=== PATIENT | female | born 1960 | race Caucasian/White ===

== ENCOUNTER 2017-05-17 00:59 | Inpatient (IN) | payer OTHER, MEDICARE ==
[~2017-05-17] VITALS: Ht 165.1 cm; Wt 63.2 kg
[2017-05-17] VITALS (12 sets, daily range): BP systolic 106–156; BP diastolic 57–78; PULSE 70–96; RESP 15–18; TEMP 97.3–97.8; O2SAT 94–100
[2017-05-17] MEDS ORDERED: SODIUM CHLOR 0.9% 1000 ML INJ 1,000 ML IV SCH ×2 (01:32→04:15)
--- NOTE | 2017-05-17 01:36 | PD ---
HPI Chief Complaint: Abdominal Pain Time Seen by Provider: 01:32 Travel History International Travel<30 days: No Contact w/Intl Traveler<30days: No Traveled to known affect area: No History of Present Illness HPI 56-year-old female presents to the emergency department by private transportation for evaluation of abdominal pain. Patient states she has localized left lower quadrant abdominal pain associated with history of bowel obstruction secondary to adhesions. Patient has history of inflammatory bowel disease diagnosed with ultrasound colitis and underwent colectomy with revision and J-pouch reconstruction. Patient's last bowel movement was 8 PM. Symptoms began around 9 PM. Symptoms were grossly worsen. Patient's had nausea without vomiting. Patient's had multiple evaluations for small bowel resection. Patient recently moved to the area 3 months ago he does not have a local provider. Patient also has history of hypertension. Patient denies fever or chills. Pain is moderate to severe. PFSH Past Medical History Narrative Medical Hypertension inflammatory bowel disease colectomy ileoanal anastomosis hysterectomy alcohol use nursing notes reviewed Diminished Hearing: No Gastrointestinal Disorders: Yes (abdominal adhesions and blockages, ulcerative colitis, crohn's ) Hypertension: Yes Tetanus Vaccination: < 5 Years Influenza Vaccination: Yes ?: Not Past Surgical History Abdominal Surgery: Yes (Total colectomy with ileoanal anastomosis ) Hysterectomy: Yes Social History Alcohol Use: Yes (2x weekly) Tobacco Use: No Substance Use: No Allergies-Medications (Allergen,Severity, Reaction): Coded Allergies: No Known Allergies (Unverified , 05/17/17) Reported Meds & Prescriptions Reported Meds & Active Scripts Active Reported Premarin (Estrogens Conjugated) 0.625 Mg Tab 0.625 Mg PO DAILY Lisinopril 5 Mg Tab 5 Mg PO DAILY Humira 2-Pack Inj (Adalimumab 2-Pack Inj) 40 Mg/0.8 Ml Syr 40 Mg SQ Q7D Narrative Medication Humerus lisinopril Review of Systems Except as stated in HPI: all other systems reviewed are Neg General / Constitutional: No: Fever, Chills HENT: No: Congestion Cardiovascular: No: Chest Pain or Discomfort Respiratory: No: Shortness of Breath Gastrointestinal: Positive: Nausea, Abdominal Pain, No: Vomiting, Diarrhea Genitourinary: No: Dysuria, Flank Pain Musculoskeletal: No: Myalgias, Arthralgias Skin: No Rash Neurologic: No: Weakness Psychiatric: No: Anxiety Endocrine: No: Heat Intolerance Hematologic/Lymphatic: No: Easy Bruising Physical Exam Narrative GENERAL: Well-developed well-nourished female in no acute distress no respiratory distress SKIN: Warm and dry. HEAD: Normocephalic. EYES: No scleral icterus. No injection or drainage. NECK: Supple, trachea midline. No JVD or lymphadenopathy. CARDIOVASCULAR: Regular rate and rhythm without murmurs, gallops, or rubs. RESPIRATORY: Breath sounds equal bilaterally. No accessory muscle use. GASTROINTESTINAL: Abdomen soft, tender left lower quadrant to palpation without guarding or rebound, nondistended. Healed abdominal wall scars. MUSCULOSKELETAL: No cyanosis, or edema. BACK: Nontender without obvious deformity. No CVA tenderness. Data Data Last Documented VS Vital Signs Date Time Temp Pulse Resp B/P Pulse Ox O2 Delivery O2 Flow Rate FiO2 05/17/17 03:50 82 18 106/57 97 Room Air 05/17/17 01:02 97.3 Orders Complete Blood Count With Diff (05/17/17 01:32) Comprehensive Metabolic Panel (05/17/17 01:32) Lipase (05/17/17 01:32) Lactic Acid (05/17/17 01:32) Urinalysis - C+S If Indicated (05/17/17 01:32) Iv Access Insert/Monitor (05/17/17 01:32) Ecg Monitoring (05/17/17 01:32) Oximetry (05/17/17 01:32) Ondansetron Inj (Zofran Inj) (05/17/17 01:45) Sodium Chlor 0.9% 1000 Ml Inj (Ns 1000 M (05/17/17 01:32) Sodium Chloride 0.9% Flush (Ns Flush) (05/17/17 01:45) Chest, Single Ap (05/17/17 01:32) Hydromorphone Pf Inj (Dilaudid Pf Inj) (05/17/17 01:45) Alcohol (Ethanol) (05/17/17 01:32) Ct Abd/Pel W Iv Contrast(Rout) (05/17/17 ) Iohexol 350 Inj (Omnipaque 350 Inj) (05/17/17 03:21) Sodium Chlor 0.9% 1000 Ml Inj (Ns 1000 M (05/17/17 04:15) Hydromorphone Pf Inj (Dilaudid Pf Inj) (05/17/17 04:15) Admit Order (Ed Use Only) (05/17/17 ) ^ Saline Lock (05/17/17 04:16) Resp Oxygen Rogers C Titrat 1-4 L (05/17/17 ) Notify Dr: Other (05/17/17 04:16) Sodium Chloride 0.9% Flush (Ns Flush) (05/17/17 09:00) Sodium Chloride 0.9% Flush (Ns Flush) (05/17/17 04:30) Labs Laboratory Tests Test 05/17/17 05/17/17 02:01 03:43 White Blood Count 10.3 TH/MM3 Red Blood Count 4.46 MIL/MM3 Hemoglobin 13.8 GM/DL Hematocrit 40.7 % Mean Corpuscular Volume 91.3 FL Mean Corpuscular Hemoglobin 30.9 PG Mean Corpuscular Hemoglobin 33.8 % Concent Red Cell Distribution Width 11.5 % Platelet Count 292 TH/MM3 Mean Platelet Volume 7.3 FL Neutrophils (%) (Auto) 73.8 % Lymphocytes (%) (Auto) 17.7 % Monocytes (%) (Auto) 5.1 % Eosinophils (%) (Auto) 0.9 % Basophils (%) (Auto) 2.5 % Neutrophils # (Auto) 7.6 TH/MM3 Lymphocytes # (Auto) 1.8 TH/MM3 Monocytes # (Auto) 0.5 TH/MM3 Eosinophils # (Auto) 0.1 TH/MM3 Basophils # (Auto) 0.3 TH/MM3 CBC Comment DIFF FINAL Differential Comment Sodium Level 138 MEQ/L Potassium Level 3.5 MEQ/L Chloride Level 104 MEQ/L Carbon Dioxide Level 24.4 MEQ/L Anion Gap 10 MEQ/L Blood Urea Nitrogen 15 MG/DL Creatinine 0.76 MG/DL Estimat Glomerular Filtration 78 ML/MIN Rate Random Glucose 97 MG/DL Lactic Acid Level 2.0 mmol/L Calcium Level 9.0 MG/DL Total Bilirubin 0.4 MG/DL Aspartate Amino Transf 13 U/L (AST/SGOT) Alanine Aminotransferase 17 U/L (ALT/SGPT) Alkaline Phosphatase 54 U/L Total Protein 7.2 GM/DL Albumin 3.6 GM/DL Lipase 181 U/L Ethyl Alcohol Level 49 MG/DL Urine Color JEANETTE Urine Turbidity CLEAR Urine pH 5.0 Urine Specific [place] 1.030 Urine Protein NEG mg/dL Urine Glucose (UA) NEG mg/dL Urine Ketones NEG mg/dL Urine Occult Blood TRACE Urine Nitrite NEG Urine Bilirubin NEG Urine Leukocyte Esterase TRACE Urine RBC 0-3 /hpf Urine WBC 6-8 /hpf Urine Squamous Epithelial > 8 /hpf Cells Urine Bacteria NONE /hpf Microscopic Urinalysis Comment CULT NOT INDICATED MDM Medical Decision Making Medical Screen Exam Complete: Yes Emergency Medical Condition: Yes Medical Record Reviewed: Yes Interpretation(s) cxr: No subdiaphragmatic free air ct abd/pel: CONCLUSION: 1. Findings characteristic of distal small bowel obstruction. Followup examination is recommended if clinically indicated. 2. Total colectomy. Adi Ozuna MD on May 17, 2017 at 3:52 Board Certified Radiologist. This report was verified electronically. CBC & BMP Diagram 05/17/17 02:01 Vital Signs Date Time Temp Pulse Resp B/P Pulse Ox O2 Delivery O2 Flow Rate FiO2 05/17/17 03:50 82 18 106/57 97 Room Air 05/17/17 02:30 14 05/17/17 02:14 100 Room Air 05/17/17 02:14 72 16 116/72 100 Room Air 05/17/17 01:02 97.3 96 16 139/73 97 Differential Diagnosis Abdominal pain, partial small bowel obstruction, colitis, diverticulitis, UTI Narrative Course IV access obtained specimens collected and sent for resulting patient administered normal saline, Zofran 4 mg IV, Dilaudid 0.5 mg IV resting in no distress; CT pendnig CT resulted c/w sbo patient administered additional pain medication patient discussed with podiatric surgeon medicine for admission Physician Communication Physician Communication call placed to [facility] service Diagnosis Primary Impression: SBO (small bowel obstruction) Admitting Information Admitting Physician Requests: Admit Tena Johnson MD May 17, 2017 01:36
[2017-05-17] MEDS ORDERED: HYDROmorphone HCL PF 1 MG/ML VIAL IV PUSH ONE ×2 (01:45→04:15)
[2017-05-17] MEDS ORDERED: ONDANSETRON HCL 4 MG/2 ML VIAL IVP ONE (01:45)
[2017-05-17] MEDS ORDERED: SODIUM CHLORIDE 0.9% FLUSH 10 ML FLUSH IV FLUSH PRN ×2 (01:45→04:45)
[2017-05-17] MEDS ORDERED: HUMI40KI SQ (01:52)
[2017-05-17] MEDS ORDERED: LISI-519 PO (01:52)
[2017-05-17] MEDS ORDERED: ESTR.625 PO (01:52)
[2017-05-17 02:09] LABS: AUTOMATED NEUTROPHIL # 7.6 TH/MM3 (1.8-7.7); BASOPHIL # 0.3 TH/MM3 (0-0.2); BASOPHIL % 2.5 % (0.0-2.0); EOSINOPHIL # 0.1 TH/MM3 (0-0.4); EOSINOPHIL % 0.9 % (0.0-4.0); HEMATOCRIT 40.7 % (35.0-46.0); HEMO FLAGS DIFF FINAL; LYMPH % 17.7 % (9.0-44.0); LYMPHOCYTE # 1.8 TH/MM3 (1.0-4.8); MEAN CELL VOLUME 91.3 FL (80.0-100.0); MEAN CORPUSCULAR HEMOGLOBIN 30.9 PG (27.0-34.0); MEAN CORPUSCULAR HGB CONC 33.8 % (32.0-36.0); MONO % 5.1 % (0.0-8.0); NEUT % 73.8 % (16.0-70.0); PLATELET COUNT 292 TH/MM3 (150-450); RED BLOOD COUNT 4.46 MIL/MM3 (4.00-5.30); RED CELL DISTRIBUTION WIDTH 11.5 % (11.6-17.2); WHITE BLOOD COUNT 10.3 TH/MM3 (4.0-11.0)
[2017-05-17 02:26] LABS: CHLORIDE 104 MEQ/L (98-107); POTASSIUM 3.5 MEQ/L (3.5-5.1); SODIUM (NA) 138 MEQ/L (136-145)
[2017-05-17 02:30] LABS: ANION GAP 10 MEQ/L (5-15); BICARBONATE 24.4 MEQ/L (21.0-32.0); BLOOD UREA NITROGEN 15 MG/DL (7-18)
[2017-05-17 02:32] LABS: ALT (GPT) 17 U/L (10-53); AST (GOT) 13 U/L (15-37)
[2017-05-17 02:33] LABS: GLOMERULAR FILTRATION RATE 78 ML/MIN (>89)
[2017-05-17 02:34] LABS: TOTAL BILIRUBIN ADULT 0.4 MG/DL (0.2-1.0)
[2017-05-17 02:35] LABS: ALKALINE PHOSPHATASE 54 U/L (45-117)
--- NOTE | 2017-05-17 02:59 | RADRPT ---
EXAM DATE/TIME: 05/17/2017 01:37 [facility] COMPARISON: No previous studies available for comparison. INDICATIONS : Free air. MEDICAL HISTORY : Crohn's disease. SURGICAL HISTORY : Appendectomy. Hysterectomy. ENCOUNTER: Initial ACUITY: 1 day PAIN SCORE: 10/10 LOCATION: Left lower quadrant abdomen FINDINGS: A single view of the chest demonstrates the lungs to be symmetrically aerated without evidence of mas s, infiltrate or effusion. The cardiomediastinal contours are unremarkable. Osseous structures are intact. CONCLUSION: 1. No acute cardiopulmonary disease. Adi Ozuna MD on May 17, 2017 at 2:57 Board Certified Radiologist. This report was verified electronically.
[2017-05-17] MEDS ORDERED: IOHEXOL 350 MG/ML 10 ML VIAL (for RAD DIAG) IV ONE (03:21)
[2017-05-17 03:51] LABS: BLOOD, URINE TRACE (NEG); GLUCOSE,URINE NEG (NEG); KETONE, URINE NEG (NEG); NITRITE,URINE NEG (NEG)
--- NOTE | 2017-05-17 03:57 | RADRPT ---
EXAM DATE/TIME: 05/17/2017 03:21 [facility] COMPARISON: No previous studies available for comparison. INDICATIONS : History of Crohn's disease and ulcerative colitis. abdominal pain for 1 day. rule out obstruction. IV CONTRAST: 95 cc Omnipaque 350 (iohexol) IV ORAL CONTRAST: No oral contrast ingested. RADIATION DOSE: 5.08 CTDIvol (mGy) MEDICAL HISTORY : Ulcerative colitis. Crohns disease. SURGICAL HISTORY : Hysterectomy. Total colectomy with ileoanal anastomosis ENCOUNTER: Initial ACUITY: 1 day PAIN SCALE: 9/10 LOCATION: abdomen TECHNIQUE: Volumetric scanning of the abdomen and pelvis was performed. Using automated exposure control and ad justment of the mA and/or kV according to patient size, radiation dose was kept as low as reasonably achievable to obtain optimal diagnostic quality images. DICOM format image data is available electro nically for review and comparison. FINDINGS: There are multiple hypodensities within the liver compatible with hepatic cysts the largest measuring 4 cm in segment 7. The spleen is normal in size and free of focal defects. The gallbladder and pancr eas are unremarkable. No intrahepatic or extrahepatic ductal dilatation is seen. The adrenal glands a re unremarkable. The left kidney is unremarkable. There is right hydronephrosis and hydroureter to th e level of the pelvic brim which appears secondary to a distended loop of small bowel. Within the pelvis there are multiple dilated loops of small bowel this patient with previous surgery and staple line in the rectum and sigmoid colon. There is total colectomy. Free fluid is present in t he abdomen. CONCLUSION: 1. Findings characteristic of distal small bowel obstruction. Followup examination is recommended if clinically indicated. 2. Total colectomy. Adi Ozuna MD on May 17, 2017 at 3:52 Board Certified Radiologist. This report was verified electronically.
[2017-05-17 04:08] LABS: COMMENT (UR) CULT NOT INDICATED; CULTURE IF INDICATED CULT NOT INDICATED; RBC, URINE 0-3 /hpf (0-3); SQUAMOUS EPITHELIAL CELL URINE > 8 /hpf (0-5); URINE COLOR AMBER (YELLW/STRAW)
[2017-05-17] MEDS ORDERED: SODIUM CHLORIDE 0.9% FLUSH 10 ML FLUSH IVF PRN (04:30)
[2017-05-17] MEDS: SODIUM CHLOR 0.9% 1000 ML INJ 1,000 ML IV SCH ×2 (04:32→14:32)
[2017-05-17] MEDS ORDERED: MORPHINE SULFATE 4 MG/ML INJ IV PRN (04:45)
[2017-05-17] MEDS ORDERED: LACTULOSE SYRUP 20 GM/30 ML CUP PO PRN (04:45)
[2017-05-17] MEDS ORDERED: ONDANSETRON HCL 4 MG/2 ML VIAL IVP PRN (04:45)
[2017-05-17] MEDS ORDERED: BISACODYL 10 MG SUPP RECTAL PRN (04:45)
[2017-05-17] MEDS ORDERED: ACETAMINOPHEN 1000 MG/100 ML VIAL IV PRN (04:45)
[2017-05-17] MEDS ORDERED: MAGNESIUM HYDROXIDE SUSP 30 ML CUP PO PRN (04:45)
[2017-05-17] MEDS ORDERED: SENNOSIDES 8.6 MG TAB PO PRN (04:45)
[2017-05-17] MEDS: MORPHINE SULFATE 4 MG/ML INJ IV PRN ×3 (06:47→20:03)
[2017-05-17] MEDS: SODIUM CHLORIDE 0.9% FLUSH 10 ML FLUSH IV FLUSH SCH ×2 (09:00→20:02)
[2017-05-17] MEDS ORDERED: SODIUM CHLORIDE 0.9% FLUSH 10 ML FLUSH IV FLUSH SCH (09:00)
[2017-05-17] MEDS: DOCUSATE SODIUM 50 MG/SENNA 8.6 MG TAB PO SCH ×3 (09:00→20:04)
--- NOTE | 2017-05-17 09:10 | HHI.HP ---
[facility] Deion Joyce MD Admission Diagnosis sbo Diagnoses: (1) SBO (small bowel obstruction) Diagnosis: Principal Chief Complaint: Abdominal pain Travel History International Travel<30 Days: No Contact w/Intl Traveler <30 Da: No Traveled to Known Affected Are: No History of Present Illness Written by Jacob Tyler, acting as scribe for Dr. Griffiths on 05/17/17 at 09: 00. 56-year-old female with known history of hypertension, ulcerative colitis status post total colectomy with J-pouch, recurrent bowel obstructions who presented to hospital because acute onset of abdominal pain. Patient states the pain is located in the left lower quadrant and she describes it as a contraction type pain that at its peak is 10/10 on a pain scale. Patient states that that pain has significantly improved and only at 2/10 on a pain scale. The contraction pain was resolved. She has some minimal nausea, denies any vomiting. Her last bowel movement was last night at approximately 67 PM. She is passing some gas this morning. She indicates that her surgeons in [place] notified her that she should not undergo any surgical intervention without contacting them first. Patient does not have a primary medical doctor or surgeon in the area. Patient had workup done emergency department with CT scan indicating small bowel obstruction with free fluid in the abdomen. Patient was admitted for further evaluation management. Review of Systems Gastrointestinal: COMPLAINS OF: Abdominal pain Except as stated in HPI: all other systems reviewed are Neg Past Family Social History Past Medical History Hypertension Ulcer colitis Past Surgical History Total colectomy with ileoanal anastomosis Hysterectomy Reported Medications Reported Meds & Active Scripts Active Reported Premarin (Estrogens Conjugated) 0.625 Mg Tab 0.625 Mg PO DAILY Lisinopril 5 Mg Tab 5 Mg PO DAILY Humira 2-Pack Inj (Adalimumab 2-Pack Inj) 40 Mg/0.8 Ml Syr 40 Mg SQ Q7D Allergies: Coded Allergies: No Known Allergies (Unverified , 05/17/17) Family History Reviewed is significant for mother from lung cancer in father from lymphoma. Social History Patient is drink alcohol occasionally. Denies any tobacco or illicit drugs Physical Exam Vital Signs Vital Signs Date Time Temp Pulse Resp B/P Pulse Ox O2 Delivery O2 Flow Rate FiO2 05/17/17 08:00 97.6 74 16 125/78 98 05/17/17 06:50 75 15 118/74 99 Room Air 05/17/17 05:37 80 15 113/73 98 Room Air 05/17/17 05:20 97 21 05/17/17 04:33 15 05/17/17 03:50 82 18 106/57 97 Room Air 05/17/17 02:30 14 05/17/17 02:14 100 Room Air 05/17/17 02:14 72 16 116/72 100 Room Air 05/17/17 01:02 97.3 96 16 139/73 97 Physical Exam GENERAL: Well-developed, well-nourished. alert and orientated HEENT: Head is normocephalic .Facial features are symmetric. Eyes: Pupils equal round reactive to light. Extraocular muscles are intact. Conjunctivae were clear. Oropharyngeal: Pharynx without any erythema edema. Tongue is midline without deviation. Buccal mucosa is moist without any masses or lesions NECK: Supple without any masses. Trachea midline no deviation. CARDIAC: Regular rhythm, regular rate.No murmurs LUNGS: Clear to auscultation bilaterally. No wheeze. No use of accessory muscles on inspiration or expiration. ABDOMEN: Soft, tenderness noted left lower quadrant. When palpating right lower quadrant she does express pain in the left lower quadrant. Nondistended. Bowel sounds heard in all 4 quadrants but are hypoactive. Negative rebound, negative guarding. Scars noted left lower quadrant and mid umbilical area, well healed, no signs of infection EXTREMITIES: No edema, pulses are equal bilaterally. NEUROLOGY: Mood and affect appear appropriate. Cranial nerves II through XII grossly intact. Muscle strength 5/5 in upper and lower extremities bilaterally. Laboratory Laboratory Tests Test 05/17/17 05/17/17 02:01 03:43 White Blood Count 10.3 Red Blood Count 4.46 Hemoglobin 13.8 Hematocrit 40.7 Mean Corpuscular Volume 91.3 Mean Corpuscular Hemoglobin 30.9 Mean Corpuscular Hemoglobin 33.8 Concent Red Cell Distribution Width 11.5 Platelet Count 292 Mean Platelet Volume 7.3 Neutrophils (%) (Auto) 73.8 Lymphocytes (%) (Auto) 17.7 Monocytes (%) (Auto) 5.1 Eosinophils (%) (Auto) 0.9 Basophils (%) (Auto) 2.5 Neutrophils # (Auto) 7.6 Lymphocytes # (Auto) 1.8 Monocytes # (Auto) 0.5 Eosinophils # (Auto) 0.1 Basophils # (Auto) 0.3 CBC Comment DIFF FINAL Differential Comment Sodium Level 138 Potassium Level 3.5 Chloride Level 104 Carbon Dioxide Level 24.4 Anion Gap 10 Blood Urea Nitrogen 15 Creatinine 0.76 Estimat Glomerular Filtration 78 Rate Random Glucose 97 Lactic Acid Level 2.0 Calcium Level 9.0 Total Bilirubin 0.4 Aspartate Amino Transf 13 (AST/SGOT) Alanine Aminotransferase 17 (ALT/SGPT) Alkaline Phosphatase 54 Total Protein 7.2 Albumin 3.6 Lipase 181 Ethyl Alcohol Level 49 Urine Color JEANETTE Urine Turbidity CLEAR Urine pH 5.0 Urine Specific [place] 1.030 Urine Protein NEG Urine Glucose (UA) NEG Urine Ketones NEG Urine Occult Blood TRACE Urine Nitrite NEG Urine Bilirubin NEG Urine Leukocyte Esterase TRACE Urine RBC 0-3 Urine WBC 6-8 Urine Squamous Epithelial > 8 Cells Urine Bacteria NONE Microscopic Urinalysis Comment CULT NOT INDICATED Result Diagram: 05/17/17 0201 05/17/17 0201 Imaging Last Impressions Chest X-Ray 05/17/17 0132 Signed Impressions: Service Date/Time: Wednesday, May 17, 2017 01:37 - CONCLUSION: 1. No acute cardiopulmonary disease. Adi Ozuna MD Abdomen/Pelvis CT 05/17/17 0000 Signed Impressions: Service Date/Time: Wednesday, May 17, 2017 03:21 - CONCLUSION: 1. Findings characteristic of distal small bowel obstruction. Followup examination is recommended if clinically indicated. 2. Total colectomy. Adi Ozuna MD Assessment and Plan Assessment and Plan 56-year-old female who presented to hospital because of left lower quadrant abdominal pain Small bowel obstruction, recurrent CT scan does indicate distal small bowel obstruction with free fluid noted in the abdomen Continue IV fluids Continue pain control Nothing by mouth with Bowel rest Consult surgery for recommendations Hypertension, blood pressure stable Resume medication when patient is able to tolerate by mouth DVT prevention Sequential compression devices This note was transcribed by ady Tyler. I, Dr. Coty Griffiths personally performed the history, physical exam, and medical decision making; and confirmed the accuracy of the information in the transcribed note. Authenticated by Dr. Coty Griffiths on 05/17/17 at 09:00. Code Status Full code Discussed Condition With Patient Physician Certification 2 Midnight Certification Type: Admission for Inpatient Services Order for Inpatient Services The services are ordered in accordance with Medicare regulations or non- Medicare payer requirements, as applicable. In the case of services not specified as inpatient-only, they are appropriately provided as inpatient services in accordance with the 2-midnight benchmark. Estimated LOS (days): 2 days is the estimated time the patient will need to remain in the hospital, assuming treatment plan goals are met and no additional complications. Post-Hospital Plan: Not yet determined Jacob Tyler May 17, 2017 09:10 Coty Griffiths MD May 17, 2017 11:30
[2017-05-17] MEDS ORDERED: ENALAPRILAT 1.25 MG/ML VIAL IV PUSH PRN (11:30)
--- NOTE | 2017-05-17 19:25 | MB ---
cc: SUNIL BAILEY JON C. M.D. BIANCHI, JOSEPH D. M.D. DATE OF CONSULTATION: 05/17/2013. REASON FOR CONSULTATION: Questionable small bowel obstruction. HISTORY OF PRESENT ILLNESS: This is a pleasant 56-year-old female who had a total colectomy for a mixture of ulcerative colitis and in addition she apparently has Crohn's disease, this was done in 2000. She intermittently has some crampy abdominal pain with signs of obstruction but this resolves over time after being in the hospital. [place] has followed her for many years and said, "Don't let anybody operate on you, this should get better". She is set up for an endoscopy evaluation by Dr. Bailey a couple weeks from now. I was consulted after the CT scan was read as possible small bowel obstruction. The patient says that since being in the hospital, she has passed a fair amount of gas but no bowel movement. No nausea or vomiting. Her abdominal discomfort is improved. PAST MEDICAL HISTORY: 1. As above with this ulcerative colitis / Crohn's disease with a total colectomy and ileoanal anastomosis. 2. She has had a hysterectomy in the past. 3. No cardiac problems except for hypertension and pulmonary issues. 4. No neurologic events. MEDICATIONS: Her medications include: 1. Humira. 2. Premarin. 3. Lisinopril. ALLERGIES: SHE IS NOT ALLERGIC TO ANYTHING. PHYSICAL EXAMINATION: GENERAL: On physical exam, she is a pleasant lady cooperative alert and oriented with minimal discomfort. NECK: The neck is supple. CHEST: Clear. HEART: Regular rate. ABDOMEN: Surgical scars in the midline. It looks like she had an ileostomy on the right side that has healed. She is mildly sore in the left lower quadrant. No rebound or guarding. EXTREMITIES: She moves all extremities well. No cyanosis, clubbing or edema. NEUROLOGIC: She is alert and oriented. LABORATORY DATA: White count of 10, hemoglobin of 13 and hematocrit of 40. Chemistry essentially normal. Liver function tests all normal. Urinalysis negative. IMAGING STUDIES: CT scan was done and showed status post colectomy with some slightly dilated small bowel hepatic cysts. ASSESSMENT: This is a 56-year-old female status post total colectomy years ago with history of intermittent small-bowel obstruction that resolved with conservative management. PLAN: At this time, she would like a cup of coffee as she is passing a fair amount of flatus. I would slowly advance her diet. I suspect this will resolve. I will get a KUB in the morning. She knows to see Dr. Bailey in a couple of weeks for the planned endoscopy and to evaluate her ileoanal anastomosis. MD DARBY Ramos/CHEIKH /6:46 PM /7:14 PM
[2017-05-18] VITALS: BP 131/90; PULSE 86; RESP 18; TEMP 97.1
[2017-05-18] MEDS: SODIUM CHLOR 0.9% 1000 ML INJ 1,000 ML IV SCH (04:53)
--- NOTE | 2017-05-18 06:46 | RADRPT ---
EXAM DATE/TIME: 05/18/2017 06:23 [facility] COMPARISON: No previous studies available for comparison. INDICATIONS : Distention. MEDICAL HISTORY : Ulcerative colitis. Crohn's disease. SURGICAL HISTORY : Hysterectomy. Total colectomy with ileoanal anastamosis. ENCOUNTER: Subsequent ACUITY: 2 days PAIN SCORE: Non-responsive. LOCATION: abdomen, all quadrants. FINDINGS: Supine view of the abdomen was performed. The abdominal bowel gas pattern is normal. No abnormal ma sses, calcifications, or organomegaly is seen. The osseous structures are unremarkable. CONCLUSION: No acute disease. Robin Beach MD on May 18, 2017 at 6:45 Board Certified Radiologist. This report was verified electronically.
[2017-05-18 06:55] LABS: CHLORIDE 110 MEQ/L (98-107); POTASSIUM 3.1 MEQ/L (3.5-5.1); SODIUM (NA) 141 MEQ/L (136-145)
[2017-05-18 07:04] LABS: AUTOMATED NEUTROPHIL # 4.2 TH/MM3 (1.8-7.7); BASOPHIL # 0.1 TH/MM3 (0-0.2); BASOPHIL % 0.9 % (0.0-2.0); EOSINOPHIL # 0.1 TH/MM3 (0-0.4); EOSINOPHIL % 1.1 % (0.0-4.0); HEMATOCRIT 34.6 % (35.0-46.0); HEMO FLAGS DIFF FINAL; LYMPH % 17.8 % (9.0-44.0); LYMPHOCYTE # 1.1 TH/MM3 (1.0-4.8); MEAN CORPUSCULAR HEMOGLOBIN 30.8 PG (27.0-34.0); MEAN CORPUSCULAR HGB CONC 33.5 % (32.0-36.0); MONO % 8.4 % (0.0-8.0); NEUT % 71.8 % (16.0-70.0); PLATELET COUNT 224 TH/MM3 (150-450); RED BLOOD COUNT 3.76 MIL/MM3 (4.00-5.30); RED CELL DISTRIBUTION WIDTH 11.8 % (11.6-17.2)
[2017-05-18 07:26] LABS: ALKALINE PHOSPHATASE 46 U/L (45-117); ALT (GPT) 13 U/L (10-53); ANION GAP 8 MEQ/L (5-15); AST (GOT) 13 U/L (15-37); BICARBONATE 23.5 MEQ/L (21.0-32.0); BLOOD UREA NITROGEN 9 MG/DL (7-18); GLOMERULAR FILTRATION RATE 114 ML/MIN (>89); TOTAL BILIRUBIN ADULT 0.8 MG/DL (0.2-1.0)
[2017-05-18 08:00] VITALS: BP 114/67; PULSE 72; RESP 20; TEMP 96.6; O2SAT 100
--- NOTE | 2017-05-18 08:12 | HHI.PR ---
Subjective Subjective Notes DAILY PROGRESS NOTE FOR SURGICAL ATTENDING, DR. ATUL DING Sitting on the side of the bed Had BM this morning No issues Feeling better Objective Vitals/I&O Vital Signs Date Time Temp Pulse Resp B/P Pulse Ox O2 Delivery O2 Flow Rate FiO2 05/18/17 00:00 97.1 86 18 131/90 05/17/17 20:00 98 05/17/17 19:38 21 05/17/17 06:50 Room Air Labs Laboratory Tests Test 05/18/17 05:25 White Blood Count 6.0 Red Blood Count 3.76 Hemoglobin 11.6 Hematocrit 34.6 Mean Corpuscular Volume 92.0 Mean Corpuscular Hemoglobin 30.8 Mean Corpuscular Hemoglobin 33.5 Concent Red Cell Distribution Width 11.8 Platelet Count 224 Mean Platelet Volume 8.3 Neutrophils (%) (Auto) 71.8 Lymphocytes (%) (Auto) 17.8 Monocytes (%) (Auto) 8.4 Eosinophils (%) (Auto) 1.1 Basophils (%) (Auto) 0.9 Neutrophils # (Auto) 4.2 Lymphocytes # (Auto) 1.1 Monocytes # (Auto) 0.5 Eosinophils # (Auto) 0.1 Basophils # (Auto) 0.1 CBC Comment DIFF FINAL Differential Comment Sodium Level 141 Potassium Level 3.1 Chloride Level 110 Carbon Dioxide Level 23.5 Anion Gap 8 Blood Urea Nitrogen 9 Creatinine 0.55 Estimat Glomerular Filtration 114 Rate Random Glucose 90 Calcium Level 7.5 Total Bilirubin 0.8 Aspartate Amino Transf 13 (AST/SGOT) Alanine Aminotransferase 13 (ALT/SGPT) Alkaline Phosphatase 46 Total Protein 5.8 Albumin 2.8 Radiology Last Impressions Abdomen X-Ray 05/18/17 0600 Signed Impressions: Service Date/Time: Thursday, May 18, 2017 06:23 - CONCLUSION: No acute disease. Robin Beach MD Chest X-Ray 05/17/17 0132 Signed Impressions: Service Date/Time: Wednesday, May 17, 2017 01:37 - CONCLUSION: 1. No acute cardiopulmonary disease. Adi Ozuna MD Abdomen/Pelvis CT 05/17/17 0000 Signed Impressions: Service Date/Time: Wednesday, May 17, 2017 03:21 - CONCLUSION: 1. Findings characteristic of distal small bowel obstruction. Followup examination is recommended if clinically indicated. 2. Total colectomy. Adi Ozuna MD Cardiovascular: Regular Lungs: Clear Abdomen: Non-distended, Non-tender, Other (well healed midline incision ) Extremities: No edema A/P Assessment and Plan 56 year old female s/p total colectomy for Crohn's disease with SBO -+BM -Advance to soft diet today -If tolerates will plan to DC today -Follow up with Dr. Bailey later this month -Continue non op treatment Attending Statement NOTE FOR SURGICAL ATTENDING, DR. ATUL DING I agree with above assessment and plan. The exam, history, and the medical decision-making described in the above note were completed with the assistance of the mid-level provider. I reviewed and agree with the findings presented. The following services were provided during this hospital visit: Chart data review, vital sign assessments/reviewing monitor data Review of consultations notes if present. Medication orders/review and/or management Ordering and/or reviewing lab tests Ordering and/or interpreting/reviewing x-rays and/or diagnostic studies Care of the patient and discussion of the patient with the care team Documentation time To help prompt me to consider important information that might be impacting today's encounter and assessment, information from prior notes written by myself or my colleagues may have been "brought forward/copy and pasted" into today's note. Moni Ventura May 18, 2017 08:12 Atul Ding MD May 18, 2017 17:21
[2017-05-18] MEDS ORDERED: POTASSIUM CHLORIDE 10 MEQ CONTROLLED RELEASE TAB PO ONE (08:30)
[2017-05-18] MEDS ORDERED: LISINOPRIL 5 MG TAB PO SCH (09:00)
[2017-05-18] MEDS: DOCUSATE SODIUM 50 MG/SENNA 8.6 MG TAB PO SCH (09:00)
[2017-05-18] MEDS: SODIUM CHLORIDE 0.9% FLUSH 10 ML FLUSH IV FLUSH SCH (09:00)
--- NOTE | 2017-05-18 10:06 | HHI.PR ---
Subjective Remarks Patient had a bowel movement last night. Tolerating regular diet and have breakfast this morning. Having some loose stools which she states is typical for her. Having some mild left lower quadrant abdominal pain which is cramping in nature. Patient would like to go home today. Objective Vitals Vital Signs Date Time Temp Pulse Resp B/P Pulse Ox O2 Delivery O2 Flow Rate FiO2 05/18/17 00:00 97.1 86 18 131/90 05/17/17 20:00 97.6 75 18 142/77 98 05/17/17 19:38 94 21 05/17/17 16:00 97.8 84 18 156/76 100 05/17/17 15:14 100 21 05/17/17 12:00 97.7 70 16 116/77 98 I/O 05/17/17 05/17/17 05/17/17 05/18/17 05/18/17 05/18/17 06:59 14:59 22:59 06:59 14:59 22:59 Intake Total 1000 ml 905 ml 1252 ml Balance 1000 ml 905 ml 1252 ml Intake Oral 550 ml 350 ml IV Total 1000 ml 355 ml 902 ml # Voids 1 8 3 # Bowel Movements 0 1 Result Diagram: 05/18/17 0525 05/18/17 0525 Objective Remarks GENERAL: Well-nourished, well-developed very pleasant lean female patient. SKIN: Warm and dry. HEAD: Normocephalic. EYES: No scleral icterus. No injection or drainage. NECK: Supple, trachea midline. No JVD or lymphadenopathy. CARDIOVASCULAR: Regular rate and rhythm without murmurs, gallops, or rubs. RESPIRATORY: Breath sounds equal bilaterally. No accessory muscle use. GASTROINTESTINAL: Bowel sounds hyperactive. Abdomen soft, non-tender, nondistended. Midline abdominal scar. EXTREMITIES: No cyanosis, or edema. NEUROLOGICAL: Awake, alert, and oriented x 3. Non-focal. A/P Problem List: (1) SBO (small bowel obstruction) ICD Code: K56.69 Status: Acute (2) Ulcerative colitis ICD Code: K51.90 Status: Acute (3) Hypokalemia ICD Code: E87.6 Status: Acute Assessment and Plan -Small bowel obstruction, resolved. She had BM overnight, tolerating regular diet. If juana lunch, cleared to go home per gen surg. -Ulcerative colitis history, s/p colectomy in 2000 - follows with Dr. Bailey, on humira. Has f/u appt 06/02 with colonoscopy planned. -Hypokalemia - likely d/t GI losses, give KCL 40 meq PO. -HTN - controlled. DC home today if tolerates lunch. Chantel Baires MD May 18, 2017 10:06
[2017-05-18] MEDS ORDERED: ULTR50TA5 PO (13:12)
[2017-05-18] MEDS ORDERED: traMADol HCL 50 MG TAB PO ONE (13:15)
[2017-05-18 14:15] VITALS: RESP 18
== END 2017-05-18 14:13 | disposition home or self-care (01) | DRG 389 ==
LOC: PHED 00:59 → PHEDA 04:18 → PH3A 07:43
PROVIDERS: ADMIT Family Medicine; ATTEND Family Medicine
DX: K56.60 Unspecified intestinal obstruction (principal); K51.90 Ulcerative colitis, unspecified, without complications; I10 Essential (primary) hypertension; Z90.49 Acquired absence of other specified parts of digestive tract; E87.6 Hypokalemia
CPT/HCPCS: 71010; 74000; 74177; 80053; 80307; 81001; 83605; 83690; 85025; J1170; J2270; J2405; J7030; Q9967